=== PATIENT | male | born 1970 | race Caucasian/White ===

== ENCOUNTER → 2016-08-24 | Day surgery (SDC) | payer OTHER ==
[~2016-08-24] MED LIST: Buffered Lidocaine 1% SYR 3ML* 3 ML/SYR SYRINGE INTRADERM ONE; Buffered Lidocaine 1% SYR 3ML* 3 ML/SYR SYRINGE ONE; Bupivacaine 0.25% EPI 200,000* 30 ML SDV ONE; Dexamethasone IV* 4 MG/ML 1 ML (4 MG) IV SLOW PU ONE; Dexamethasone IV* 4 MG/ML 1 ML (4 MG) ONE; EPHEDrine (Pressors)* 50 MG/ML VIAL ONE; Famotidine IV* 10 MG/ML 2 ML (20 mg) IV ONE; Famotidine IV* 10 MG/ML 2 ML (20 mg) ONE; Ketorolac INJ* 30 MG/ML 1 ML VIAL ONE; Lidocaine 2% MPF* 2 ML VIAL ONE; Midazolam* 1 MG/ML 5 ML VIAL (5 MG) ONE; Ondansetron INJ* 2 MG/ML VIAL ONE; PROCHLORPERAZINE INJ 5 MG/ML 2 ML VIAL IV PRN; Propofol* 10 MG/ML 20 ML BTL IV PUSH ONE; Rocuronium* 10 MG/ML VIAL ONE; ceFAZolin 2 GM PREMIX (*) 2 GM/50 ML BAG IVPB ONE; fentaNYL* 50 MCG/ML 2 ML VIAL (100 MCG VIAL) IV PRN; fentaNYL* 50 MCG/ML 2 ML VIAL (100 MCG VIAL) ONE; oxyCODONE/Acetamin 5/325 MG* TAB ONE; oxyCODONE/Acetamin 5/325 MG* TAB PO PRN
--- NOTE | 2016-08-24 14:01 | SURGPN ---
Brief Operative Note - Surgery Procedures: OPERATIVE REPORT PRE-OP: Right upper abdominal pain, gallstones POST-OP: Chronic calculous cholecystitis PROCEDURE: Laparoscopic cholecystectomy SURGEON: MD Shaylee ANESTHESIA: General with Dr. Luciano ASST: LOBO Madrigal IVF: 1 l crystalloid EBL: min SPECIMEN: gallbladder DRAIN: none WOUND CLASS: 2 COMPLICATIONS: none TO PACU
[2016-08-24 16:03] VITALS: BP 131/71
--- NOTE | 2016-08-27 16:13 | OP ---
CC: [facility]; [facility] in [place], Dr. Johnson/Dr. Barron OPERATIVE REPORT: DATE OF OPERATION: 08/24/16 DATE OF : 70 SURGEON: Randy June MD OFFICE MACHINERY OR EQUIPMENT INSTALLER: LOBO Sharma ANESTHESIA: General with local. PRE-OP DIAGNOSIS: Gallstones with right upper quadrant abdominal pain. POST-OP DIAGNOSES: 1. Gallstones with right upper quadrant abdominal pain. 2. Chronic calculus cholecystitis. OPERATIVE PROCEDURE: Laparoscopic cholecystectomy. WOUND CLASSIFICATION: II. COMPLICATION: None. DRAINS: None. SPECIMENS: None. FINDINGS: The gallbladder wall was mildly thickened and there was some chronic inflammatory change in the infundibular area consistent with chronic cholelithiasis and inflammation. There were large gallstones within the gallbladder with this what appeared to be associated sludge. DESCRIPTION OF PROCEDURE: Written informed consent was obtained, the abdomen was marked with indeli ble ink and preoperative antibiotics were administered. The patient was taken to the operating room and placed in the supine position. Sequential compression devices and a warming blanket were applie d. General anesthesia was administered and the abdomen was prepped and draped in the usual sterile fashion. Time-out verification was completed. Next, a small transverse incision was made just below the umbilicus at the midline. The peritoneal c avity was entered under direct vision. A 12-mm blunt port was inserted and the abdomen was insuffla miladis to 15 mmHg. Under direct vision, a 11-mm epigastric port was placed and two 5-mm ports were placed in the right upper quadrant of the abdomen. The gallbladder was identified. It was whitish in color, it appeared to be thickened, and distended , and appeared to be large stones within. The liver appeared to be normal. There was no pericholec ystic fluid or other acute finding noted. The gallbladder was then grasped and elevated up over the liver bed. It was obvious that there had been some chronic inflammatory change and the wall was somewhat thickened and there was some fibrous more chronic thickened peritoneum along the infundibular area. This was sharply divided and the pe ritoneum along the medial and lateral aspects of the infundibular area was taken down to underscore and identify the cystic duct and artery as they entered the gallbladder. The cystic duct appeared t o be of normal caliber. I was able to identify the hepatocystic triangle using the critical view te [place]nique and I took a significant portion of the inferior part of the gallbladder off the liver bed t o assure myself of these two structures, i.e., the cystic duct and cystic artery. Once this was achieved, the cystic duct and artery were then doubly clipped and divided. The gallbl adder was removed from the liver bed using a cautery. It was then placed in an EndoCatch bag. To bring the gallbladder out through the infraumbilical incision, I did need to make this larger due to the large stones and thickening of the gallbladder wall, but we were able to remove this subsequ ently without difficulty once the fascial defect had been extended. The right upper quadrant was then irrigated and hemostasis was assured. All ports was then removed u nder direct vision and there was no abdominal wall bleeding. The umbilical fascia then was closed with interrupted 0 Polysorb suture. The skin was approximated with subcuticular 4-0 Polysorb sutur e. Steri- Strips were applied. The patient tolerated the procedure well and was taken to [facility] room in stable condition. [id number]/[facility] #: [id number]
== END | disposition home or self-care (01) ==
LOC: OR 10:46
PROVIDERS: ATTEND Surgery
DX: K80.10 Calculus of gallbladder with chronic cholecystitis without obstruction (principal); F17.210 Nicotine dependence, cigarettes, uncomplicated
CPT/HCPCS: 88304; A9270-GY; J0690; J1100; J1885; J2250; J2405; J2704; J3010

== ENCOUNTER 2018-03-21 18:27 | Emergency (ER) | payer OTHER ==
[2018-03-21 19:46] VITALS: BP 142/85
[2018-03-21] MEDS ORDERED: Tetracaine 0.5% OPTH.SOL 15ML* BTL BOTH EYES ONE (19:55)
[2018-03-21] MEDS ORDERED: Fluorescein Sod TOPICAL 0.6* 0.6 MG TEST OPHTHALMIC ONE (19:55)
--- NOTE | 2018-03-21 20:05 | UC ---
Eye Complaint HPI - History of Current Complaint Chief Complaint: UCEye Stated Complaint: FOREIGN BODY IN EYE Time Seen by Provider: 03/21/18 19:43 Hx Obtained From: Patient Hx From Patient Unobtainable Due To: Altered Mental Status Onset/Duration: Lasting Hours Pain Intensity: 2 - Allergies/Home Medications Allergies/Adverse Reactions: Allergies Allergy/AdvReac Type Severity Reaction Status Date / Time No Known Allergies Allergy Verified 08/24/16 11:10 PMH/Surg Hx/FS Hx/Imm Hx Previously Healthy: Yes - Surgical History Surgical History: Yes Surgery Procedure, Year, and Place: LEFT KNEE SURGERY- FOR [id number]. CHEST TUBE PLACED AND REMOVED FOR LUNG COLLAPSE - Family History Known Family History: Positive: Cardiac Disease - Social History Alcohol Use: Daily Alcohol Amount: UP TO A 6 PACK PER DAY Substance Use Type: None Smoking Status (MU): Heavy Every Day Tobacco Smoker Amount Used/How Often: 1 PPD X 20+ YEARS Have You Smoked in the Last Year: Yes Review of Systems Constitutional: Negative Eyes: Eye Redness, Photophobia All Other Systems Reviewed And Are Negative: Yes Physical Exam Triage Information Reviewed: Yes Appearance: Well-Appearing, No Pain Distress, Well-Nourished Vital Signs: Initial Vital Signs Temp 98.0 F 03/21/18 19:41 Pulse 62 03/21/18 19:41 Resp 16 03/21/18 19:41 BP 142/85 03/21/18 19:41 Pulse Ox 96 03/21/18 19:41 Vital Signs Reviewed: Yes Eyes: Positive: Conjunctiva Inflamed, Other: - LISA, EOM wnl, metallic foreign body on nasal aspect right cornea Neck exam: Normal Respiratory: Positive: Chest non-tender Cardiovascular: Positive: Pulses Normal, Brisk Capillary Refill Eye Complaint Course/Dx - Course Course Of Treatment: FB was removed with 25 marielena needle, rust ring persists, referral to ophthalmology, start polytrim eye drops q2hr OD for 1 week - Differential Dx/Diagnosis Provider Diagnoses: foreign body on right eye Discharge - Sign-Out/Discharge Documenting (check all that apply): Patient Departure - Discharge Plan Condition: Stable Disposition: HOME Patient Education Materials: Eye Foreign Body (ED), Polymyxin B/Trimethoprim ( Into the eye) Referrals: Tomasz Johnson MD [Primary Care Provider] - Humza Helm MD [Medical Doctor] - Additional Instructions: please make an appointment for ophthalmology tomorrow - Billing Disposition and Condition Condition: STABLE Disposition: Home
[2018-03-21] MEDS ORDERED: Polymyx/Trimethoprim OPTH* 10 ML BTL BOTH EYES ONE (20:32)
== END 2018-03-21 21:00 | disposition home or self-care (01) ==
LOC: UCEAST 18:27
DX: T15.01XA Foreign body in cornea, right eye, initial encounter (principal); X58.XXXA Exposure to other specified factors, initial encounter; Y93.9 Activity, unspecified; Y92.9 Unspecified place or not applicable; Z82.49 Family history of ischemic heart disease and other diseases of the circulatory system; F17.210 Nicotine dependence, cigarettes, uncomplicated
CPT/HCPCS: 65220; 99212; A9270-GY; G0463